=== PATIENT | male | born 1995 | race African-American/Black ===

== ENCOUNTER 2019-07-06 15:52 | Emergency (ER) | payer SELFPAY ==
[2019-07-06 15:53] VITALS: BP 141/68; PULSE 44; RESP 17; TEMP 37.1; O2SAT 96; BMI 29.2
--- NOTE | 2019-07-06 16:23 | ED.DCSUM_ITS ---
- ER Visit Summary Date of Service: 07/06/19 Chief Complaint: Back pain post lifting History of Present Illness: The patient is a 23 M no seen in past medical or surgical history. No prior back problems. He states he was lifting last Thursday about a week ago. He felt a pulling in his lower back. He was lifting about 225 pounds at that time. Denies any bowel or bladder incontinence. Denies any extremity weakness or numbness. No fever. No falls or other trauma. No prior back history or surgery. Worse with movement. Better with rest. Physical Examination: Young healthy male no acute distress vital signs stable afebrile. 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 HEENT exam unremarkable. Neck nontender no lymphadenopathy. Lungs clear to auscultation bilaterally. Heart regular rate and rhythm no murmur. Abdomen soft nontender normal bowel sounds no peritoneal signs. Extremities moves all 4. Neurovascular intact. 5-5 reporting coordinator strength. Dorsi plantarflexion intact. No cauda equina. No saddle anesthesia. Negative straight leg raise bilaterally. Normal medial thigh sensation. Back is reproducible parathoracic muscular tenderness. Consistent with myofascial strain. Spine is nontender. There is no ecchymosis or bruising. No redness or warmth. Neurologic exam normal. Neuro neurological deficits, numbness or weakness. NIH 0. Test Results: None Emergency Department Course and Treatment: History and exam are consistent with parathoracic myofascial strain. Discussed with patient. To be treated with Motrin. Treatment Plan: Hot shower, warm bath and whirlpool. Massage. Motrin for pain and inflammation. Tylenol for pain. No heavy weightlifting till resolved. Follow-up as needed. Return if worse. Disposition: Discharge Impression: Parathoracic myofascial strain This note was generated with [employer] dictation software. It may contain incorrect words, spelling, and punctuation that were not noted in review of the chart prior to signing ED Disposition - Plan for ED Patient: Referrals: Sandra Madrid,Out of [Primary Care Provider] -
--- NOTE | 2019-07-06 16:31 | ED.DEP ---
ED Disposition - Plan for ED Patient: Disposition: Home or Assisted Living Instructions: Back Sprain/Strain Referrals: Bennett Purcell MD [STAFF PHYSICIAN] - 1 Week if not improving Additional Instructions: Hot Shower, whirlpool tub and massage. Motrin for pain and inflammation. Tylenol for pain. No heavy lifting until pain resolves. Follow-up if not improving. Return to the emergency department if worsening pain or weakness in your lower extremities.
[2019-07-06] MEDS: Ibuprofen 400 MG Tablet 800 MG PO (16:44)
== END 2019-07-06 16:49 | disposition home or self-care (01) ==
PROVIDERS: Emergency Provider Emergency Medicine; PCP Pediatrics
DX: S29.012A Strain of muscle and tendon of back wall of thorax, initial encounter (principal); X50.0XXA Overexertion from strenuous movement or load, initial encounter; M54.6 Pain in thoracic spine
CPT/HCPCS: 99283